=== PATIENT | male | born 1980 | race Caucasian/White ===

== ENCOUNTER 2017-03-02 09:59 | Emergency (ER) ==
[2017-03-02 10:10] VITALS: BP 134/81; TEMP 97.3; BMI 21.6
[2017-03-02] MEDS ORDERED: TORADOL IM STA (10:28)
[2017-03-02] MEDS ORDERED: NORFLEX IM STA (10:29)
--- NOTE | 2017-03-02 10:33 | ED.PDOC ---
General ED Provider: Dr. DOROTHEA BENJAMIN Chief Complaint: Back Pain Stated Complaint: back pain Time Seen by Physician: 10:00 Mode of Arrival: Walk-In Information Source: Patient Exam Limitations: No limitations Primary Care Provider: DIVYA FELDER Nursing and Triage Documentation Reviewed and Agree: Yes Musculoskeletal Complaint Exam - Back Pain Complaint/Exam Mechanism of Injury: Reports: No known trauma Onset/Duration: 3 hours after bending in shower Symptoms Are: Still present Timing: Constant Episodes Lasting: Hours Initial Severity: Moderate Current Severity: Moderate Location: Reports: Discrete Character: Reports: Aching Aggravating: Reports: Movements Alleviating: Reports: Position Associated Signs and Symptoms: Denies: Swelling, Redness, Bruising, Fever, Weakness, Numbness, Tingling, Abdominal pain, Flank pain, Bladder incontinence, Bowel incontinence, Weight loss, Pain with weight bearing TAD Risk Factors: Reports: None AAA Risk Factors: Reports: None Cauda Equina Risk Factors: Reports: None Epidural Abcess Risk Factors: Reports: None Related Surgical History: Reports: None Focal Tenderness: No Paraspinal Muscle Tenderness: Yes Paraspinal Muscle Spasm: No Scoliosis: No Lordosis: No Kyphosis: No SLR Test: Right Negative, Left Negative Hip Motion Testing Pain: Right Negative, Left Negative Focal Weakness: Present: None Focal Sensory Loss: Present: None Gait: Present: Normal Differential Diagnoses: Strain, Sprain Review of Systems - Review Of Systems Constitutional: Reports: No symptoms Eyes: Reports: No symptoms Ears, Nose, Mouth, Throat: Reports: No symptoms Respiratory: Reports: No symptoms Cardiac: Reports: No symptoms GI: Reports: No symptoms : Reports: No symptoms Musculoskeletal: Reports: Back pain Skin: Reports: No symptoms Neurological: Reports: No symptoms Endocrine: Reports: No symptoms Hematologic/Lymphatic: Reports: No symptoms All Other Systems: Reviewed and Negative Past Medical History - Past Medical History Previously Healthy: Yes Endocrine: Reports: None Cardiovascular: Reports: None Respiratory: Reports: None Hematological: Reports: None Gastrointestinal: Reports: None Genitourinary: Reports: None Neuro/Psych: Reports: None Musculoskeletal: Reports: None Cancer: Reports: None - Surgical History General Surgical History: Reports: None - Family History Family History: Reports: None - Social History Smoking Status: Former smoker Hx Substance Use: No Alcohol Screening: Occasionally - Immunizations Tetanus Shot up to Date: No Physical Exam - Physical Exam Appearance: Well-appearing, No pain distress, Well-nourished Eyes: WILFRED, EOMI, Conjunctiva clear ENT: Ears normal, Nose normal, Oropharynx normal Respiratory: Airway patent, Breath sounds clear, Breath sounds equal, Respirations nonlabored Cardiovascular: RRR, Pulses normal, No rub, No murmur GI/: Soft, Nontender, No masses, Bowel sounds normal, No Organomegaly Musculoskeletal: Normal strength, ROM intact, No edema, No calf tenderness Skin: Warm, Dry, Normal color Neurological: Sensation intact, Motor intact, Reflexes intact, Cranial nerves intact, Alert, Oriented Psychiatric: Affect appropriate, Mood appropriate Critical Care Note - Critical Care Note Total Time (mins): 0 Course - Course Orders, Labs, Meds: Orders Category Date Time Status Ketorolac Tromethamine [Toradol] MEDS 03/02/17 10:28 Discontinued 60 mg IM ONCE STA Orphenadrine Citrate [Norflex] MEDS 03/02/17 10:29 Discontinued 30 mg IM ONCE STA Medications Discontinued Medications Generic Name Dose Route Start Last Admin Trade Name Tessa PRN Reason Stop Dose Admin Ketorolac Tromethamine 60 mg 03/02/17 10:28 03/02/17 10:38 Toradol IM 03/02/17 10:29 60 mg ONCE STA Administration Orphenadrine Citrate 30 mg 03/02/17 10:29 03/02/17 10:36 Norflex IM 03/02/17 10:30 30 mg ONCE STA Administration Vital Signs: Temp Pulse Resp BP Pulse Ox 03/02/17 09:59 97.3 F L 75 18 134/81 97 Departure - Departure Time of Disposition: 10:32 Disposition: HOME SELF-CARE Discharge Problem: Backache Back pain Qualifiers: Back pain location: low back pain Chronicity: acute Back pain laterality: bilateral Sciatica presence: without sciatica Qualifier Code: (M54.5) Low back pain Instructions: Acute Low Back Pain (ED) Condition: Good Pt referred to PMD for follow-up: No Additional Instructions: Please call your Family Physician as soon as possible to schedule a follow-up appointment. NORCO 10/325 take 3 times a day for two days Allergies/Adverse Reactions: Allergies Sulfa (Sulfonamide Antibiotics) Allergy (Mild, Verified 03/02/17 10:12) Elevated BP, headache Home Medications: Ambulatory Orders Fluticasone Propionate [Flonase Allergy Relief] 9.9 ml NS PRN PRN 10/21/16 Cyclobenzaprine HCl [Flexeril] 10 mg PO DAILY PRN 03/02/17 Diclofenac Sodium 75 mg PO BID PRN 03/02/17
== END 2017-03-02 11:02 | disposition home or self-care (01) ==
LOC: ED 09:59
DX: M54.5 Low back pain (principal); X50.1XXA Overexertion from prolonged static or awkward postures, initial encounter
CPT/HCPCS: 96372; 99282

== ENCOUNTER 2017-03-11 09:06 | Outpatient (CLI) ==
[2017-03-11 13:12] LABS: FLU INTERNAL QC INTERNAL QC VALID; RAPID FLU A NEGATIVE (NEGATIVE); RAPID FLU B NEGATIVE (NEGATIVE)
== END 2017-03-11 09:07 | disposition home or self-care (01) ==
LOC: LAB 09:06
PROVIDERS: ATTEND Nurse Practitioner Family
DX: J02.9 Acute pharyngitis, unspecified (principal); R50.9 Fever, unspecified
CPT/HCPCS: 87651; 87804; 87880

== ENCOUNTER 2018-06-03 15:55 | Outpatient (CLI) ==
--- NOTE | 2018-06-04 09:08 | DI ---
Exam: Six views of the lumbar spine. Comparison: None available. Reason for exam: Low back pain. FINDINGS: No acute fracture or listhesis in the lumbar spine. There is intervertebral body disc spa ce height narrowing most notably at L5-S1. There is mild straightening of the lordotic curve. Impression: 1. No acute fracture in the lumbar spine. 2. Degenerative disease most notably L5-S1 with intervertebral body disc space height narrowing. If clinical concern exists, MRI may be performed for further characterization.
== END 2018-06-03 15:56 | disposition home or self-care (01) ==
LOC: RAD 15:55
PROVIDERS: ATTEND Family Medicine
DX: M54.5 Low back pain (principal)
CPT/HCPCS: 81001

== ENCOUNTER 2018-07-09 08:00 | Outpatient (RCR) ==
--- NOTE | 2018-06-15 16:14 | RS.OPPTEV2 ---
Date of Note: 06/15/18 Visit #: 1 Date of Evaluation: 06/15/18 Payer Source: Medicaid Treatment Diagnosis: Lumbar pain, Cervical paraspinal muscle spasm History of Condition/Mechanism of Injury:: Patient states he has had trouble with his back for a few years. He has backed off of lifting over the last one to one and a half years due to back pain. He has gone for Chiropractor treatments and has in inversion table that he uses consistently at home. Prior Level of Function.....Patient was independent with: ADL's, Self Care, Work /Vocation, Caregiving, Ambulation/Mobility, Community Integration/Access Functional Limitations: Standing, Bending Current Subjective/complaints:: Patient reports back pain with prolonged standing. Also reports pain first thing in the morning. States he has recently had more episodes of severe back pain. He has been active in weight lifting for years, including lifts. He has been limiting the amount of weight he lifts for over a year because of his back pain. He reports most pain is in the low back. LE symptoms are rare, but has experienced burning on the lateral side of the left foot and curling of the toes. Reports pain is almost always at least 2/10. States when pain is at it's worst, he cannot move or function. In the past, soaking in the tub has helped, but not recently. He has a muscle relaxant he takes before bed, which he reports has helped him sleep. Medical History Surgical History Comments:: Bilateral achilles tendon lengthening as a child Smoking Status: Former smoker Hx Home Medications: Ibuprofen, Prednisone (finished), Prilosec, Flexeril Patient's Goals: His goal is to get relief of back pain. Pain Assessment - Pain Description Pain Location: low back Current Pain Intensity: 3/10 Worst Pain Intensity: 8/10 Functional Outcome Measure Oswestry LBP: 46 - G Codes & Severity Modifier G Codes & Modifier: NA Source of G Code score: NA Observation - Observation Posture: Scapula Asymmetry (left scapula elevated), Decreased Lumbar Lordosis Handedness: Right Gait - Gait Pattern General Gait Pattern Observation: No Deviations/Normal - ROM Comments: To perform lumbar flexion, patient flexes both knees as he bends at the waist. Lumbar spine demonstrates limited mobility with flexion. Lumbar extension is WFL's. Bilateral lateral flexion is WFL's. Lower trunk rotation is WFL's with reports of rotation to his left feeling more limited. Bilateral LE AROM is WFL's. - Strength Trunk Lateral Flexion: 5 Normal Trunk Rotation: 5 Normal Comments: 5/5 throughout bilateral LE's. - Special Tests JOHAN Test: Negative Left, Negative Right SLR Test: Negative Left, Negative Right Seated Dural Stretch Test: Negative Left, Negative Right SI Joint Compression: Negative SI Joint Distraction: Negative Palpation Comments:: Demonstrates moderate muscle guarding along the lower thoracic and entire lumbar paraspinals. Reports no tenderness with Central PA's along the lumbar spinous processes. No tenderness with palpation over either SI joint. Sensation - Sensation Right Lower Extremity: Intact/Normal Left Lower Extremity: Intact/Normal Additional Comments: Additional Comments: SLR in supine: Right 45 degrees, left to 40 degrees. Interventions - Exercise/Activities/Manual Therapy Exercises/Activities: Patient instructed in HS, Piriformis, and lower trunk rotation stretches for HEP. Manual Therapy: NA HOME EXERCISE PROGRAM: HS, Piriformis, and lower trunk rotation stretches - Charges Timed Code Treatment Minutes: 0 Total Treatment Time: 40 mins Procedures billed for this date of service:: EVAL Low EVALUATION COMPLEXITY LEVEL EVALUATION COMPLEXITY LEVEL: HISTORY: Low, EXAM OF BODY SYSTEMS: Low, CLINICAL PRESENTATION: Low, CLINICAL DECISION MAKING: Low Assessment Assessment: Patient presents with diagnosis of lumbar pain and cervical paraspinal muscle spasm. He reports managing his neck pain with Chiropractor visits and inversion table. Patient's main focus is his back pain. He is active in weight lifting, but has had to limit himself over the past year due to back pain. He wakes with back pain each morning and reports increased pain with prolonged standing. He presents with tight hamstrings and moderately guarded lumbar paraspinals. He demonstrates good potential to benefit from stretching of tight muscles to relieve pressure on the lumbar spine. Patient Education: Education of diagnosis, Body/Joint mechanics, Home Exercise Program, Home Safety, Activity Modification, Education of Plan of Care Rehab Potential: Good Short Term Goals Goal #1: Patient independent and compliant in HEP. Goal to be met by: 06/29/18 Goal #2: Bilateral SLR to 50 degrees. Goal to be met by: 06/29/18 Goal #3: Muscle tone along lumbar paraspinals decreased to minimal. Goal to be met by: 06/29/18 Half-Way Goals Goal #1: Pt knows HEP and to continue ex's to maintain level of function at D/C. Goal to be met by: 07/15/18 Goal #2: Score on Oswestry LBP scale improved to 26. Goal to be met by: 07/15/18 Goal #3: Pt to tolerate prolonged standing with minimal LBP. Goal to be met by: 07/15/18 Goal #4: Pt to demo. good understanding of back safety and his diagnosis. Goal to be met by: 07/15/18 Plan - Treatment to be Provided Procedures: Therapeutic Exercises, Therapeutic Activity, Manual Therapy, Patient Education Modalities: Electrical Stimulation, Ultrasound/Phonophoresis, Cryotherapy, Hot Packs, Mechanical Traction (lumbar) - Treatment Plan Frequency: 3 X week Duration: 3 weeks ORDER # VISITS AND/OR THROUGH DATE: 07/15/18 - Treatment Code (1) Low back pain Code(s): M54.5 - LOW BACK PAIN Qualifiers: Chronicity: chronic Back pain laterality: unspecified Sciatica presence: unspecified whether sciatica present Qualified Code(s): M54.5 - Low back pain ; G89.29 - Other chronic pain
--- NOTE | 2018-07-03 09:16 | RS.OPPTDN ---
Subjective Date of Note: 07/03/18 Visit #: 2 Date of Evaluation: 06/15/18 Payer Source: Medicaid Treatment Diagnosis: Lumbar pain, Cervical paraspinal muscle spasm Current Subjective/complaints:: Patient reports the back pain varies ,dependent upon amount of standing throughout the day. Pain Assessment - Pain Description Pain Location: lumbar Pain Description: Tightness, Dull, Aching Current Pain Intensity: 2-3 - Heat/Cryotherapy Treatment: Hot Pack (20 mins. prior to exercises) Interventions - Exercise/Activities/Manual Therapy Exercises/Activities: 40 mins. total of pelvic tilts,SKTC,DKTC,90/90 hamstring stretches,contract-relax instructionms for hamstrings,body mechanics. Total minutes of Exercise: 40 Manual Therapy: NA HOME EXERCISE PROGRAM: HS, Piriformis, and lower trunk rotation stretches - Charges Timed Code Treatment Minutes: 40 Total Treatment Time: 60 Procedures billed for this date of service:: hp,ex 3 Assessment: Patient has very good knowledge of HEP,good return demo.We discussed to hold the stretches longer if pain is not elicited.He has moderate hamstring tightness bilaterally .This does improve after contract-relax method of stretches.He also has slight R sided increase in LBP with L SKTC.He is vry attentive and motivated to improve. Patient Education: Education of diagnosis, Body/Joint mechanics, Home Exercise Program, Home Safety, Activity Modification, Education of Plan of Care Patient demonstrates compliance with HEP?: Yes Short Term Goals Goal #1: Patient independent and compliant in HEP. Goal to be met by: 06/29/18 Progress towards Goal:: Progressing Goal #2: Bilateral SLR to 50 degrees. Goal to be met by: 06/29/18 Goal #3: Muscle tone along lumbar paraspinals decreased to minimal. Goal to be met by: 06/29/18 Penitentiary Goals Goal #1: Pt knows HEP and to continue ex's to maintain level of function at D/C. Goal to be met by: 07/15/18 Progress towards goal: Progressing Goal #2: Score on Oswestry LBP scale improved to 26. Goal to be met by: 07/15/18 Goal #3: Pt to tolerate prolonged standing with minimal LBP. Goal to be met by: 07/15/18 Goal #4: Pt to demo. good understanding of back safety and his diagnosis. Goal to be met by: 07/15/18 Progress towards goal: Progressing Plan PLAN OF CARE EXPIRES ON:: 07/15/18 ORDER # VISITS AND/OR THROUGH DATE: 07/15/18 PLAN: Continue PT to eliminate back pain ,increase awareness of posture and body mechanics.
--- NOTE | 2018-07-07 09:34 | RS.OPPTDN ---
Subjective Date of Note: 07/07/18 Visit #: 3 Date of Evaluation: 06/15/18 Payer Source: Medicaid Treatment Diagnosis: Lumbar pain, Cervical paraspinal muscle spasm Current Subjective/complaints:: Reports muscle sorenes ,but no increased back pain today.He is compliant to HEP,is also working on stretching his hamstrings. Pain Assessment - Pain Description Pain Location: low back Pain Description: Dull Pain Description: muscular soreness Current Pain Intensity: not rated - Heat/Cryotherapy Treatment: Hot Pack (20 mins. prior to exercises) Interventions - Exercise/Activities/Manual Therapy Exercises/Activities: 40 mins. total of pelvic tilts,SKTC,DKTC,90/90 hamstring stretches,contract-relax instructions for hamstrings,LTR ,piriformis stretches..Added muscle energy techniques for SI joint of resisted hip flexion , and resisted knee extension in hooklying. Total minutes of Exercise: 40 Manual Therapy: NA HOME EXERCISE PROGRAM: HS, Piriformis, and lower trunk rotation stretches - Charges Timed Code Treatment Minutes: 40 Total Treatment Time: 60 Procedures billed for this date of service:: hp,ex 3 Assessment: Patient instructed to increase the focus on stretching the hamstrings.He is active and has good muscle tone ,but the extensibility can improve and decrease the risk of low back injury.The other exercises are done properly,except verbal cues to hold the stretch longer ,and also for breathing technique. Patient Education: Education of diagnosis, Body/Joint mechanics, Home Exercise Program, Home Safety, Activity Modification, Education of Plan of Care Patient demonstrates compliance with HEP?: Yes Short Term Goals Goal #1: Patient independent and compliant in HEP. Goal to be met by: 06/29/18 Progress towards Goal:: Progressing Goal #2: Bilateral SLR to 50 degrees. Goal to be met by: 06/29/18 Progress towards Goal:: Progressing Goal #3: Muscle tone along lumbar paraspinals decreased to minimal. Goal to be met by: 06/29/18 Mural Painter Goals Goal #1: Pt knows HEP and to continue ex's to maintain level of function at D/C. Goal to be met by: 07/15/18 Progress towards goal: Progressing Goal #2: Score on Oswestry LBP scale improved to 26. Goal to be met by: 07/15/18 Goal #3: Pt to tolerate prolonged standing with minimal LBP. Goal to be met by: 07/15/18 Progress towards goal: Progressing Goal #4: Pt to demo. good understanding of back safety and his diagnosis. Goal to be met by: 07/15/18 Progress towards goal: Progressing Plan PLAN OF CARE EXPIRES ON:: 07/15/18 ORDER # VISITS AND/OR THROUGH DATE: 07/15/18 PLAN: Continue PT to decrease LBP by utilizing proper stretches,especially of hamstrings,educate patient also on postural awareness.
--- NOTE | 2018-07-08 09:20 | RS.OPPTDN ---
Subjective Date of Note: 07/08/18 Visit #: 4 Date of Evaluation: 06/15/18 Payer Source: Medicaid Treatment Diagnosis: Lumbar pain, Cervical paraspinal muscle spasm Current Subjective/complaints:: Patient reports the back feels about like yesterday ,department director stiffness and achng,but no sgharp pain . Pain Assessment - Pain Description Pain Location: lumbar Pain Description: Dull Current Pain Intensity: 1/10 - Heat/Cryotherapy Treatment: Hot Pack (20 mins. to lumbar and bilateral hamstrings before stretches) Interventions - Exercise/Activities/Manual Therapy Exercises/Activities: 35 mins. total of pelvic tilts,90/90 hamstring stretches, contract-relax instructions for hamstrings.Multiple reps. of contract-relax with the LE elevated at different angles.Passive knee extension to approximately -10 degrees when hip flexed to 90 in supine. Total minutes of Exercise: 35 Manual Therapy: NA Total minutes of Manual Therapy: 0 HOME EXERCISE PROGRAM: HS, Piriformis, and lower trunk rotation stretches - Charges Timed Code Treatment Minutes: 35 Total Treatment Time: 55 Procedures billed for this date of service:: hp,ex 2 Assessment: Patient progressing ,has significant improvement in the hamstring extensibility after multiple reps. of aggressive stretching.Patient education regarding the importance of stretches ,as he is very active ,weight-lifts in gym.The stretches today did not elicit any pain,has negative SLR tests on each LE today. Patient Education: Education of diagnosis, Body/Joint mechanics, Home Exercise Program, Home Safety, Activity Modification, Education of Plan of Care Patient demonstrates compliance with HEP?: Yes Short Term Goals Goal #1: Patient independent and compliant in HEP. Goal to be met by: 06/29/18 Progress towards Goal:: Met Goal #2: Bilateral SLR to 50 degrees. Goal to be met by: 06/29/18 Progress towards Goal:: Met Goal #3: Muscle tone along lumbar paraspinals decreased to minimal. Goal to be met by: 06/29/18 Progress towards Goal:: Progressing [facility] Goals Goal #1: Pt knows HEP and to continue ex's to maintain level of function at D/C. Goal to be met by: 07/15/18 Progress towards goal: Met Goal #2: Score on Oswestry LBP scale improved to 26. Goal to be met by: 07/15/18 Goal #3: Pt to tolerate prolonged standing with minimal LBP. Goal to be met by: 07/15/18 Progress towards goal: Progressing Goal #4: Pt to demo. good understanding of back safety and his diagnosis. Goal to be met by: 07/15/18 Progress towards goal: Progressing Plan PLAN OF CARE EXPIRES ON:: 07/15/18 ORDER # VISITS AND/OR THROUGH DATE: 07/15/18 PLAN: Continue PT to eliminate back pain ,increase the hamstring extensibility to reduce the risk of back injury.
--- NOTE | 2018-07-09 09:18 | RS.QUICKDC ---
Discharge from PT Date of Discharge: 07/09/18 Number of Visits: 5 Reason for Discharge: Patient has progressed well,has excellent understanding of body mechanics.His back pain is minimal with activity,not present at rest.Today's session includes hot pack,exercise for 25 mins.He has good return demo of pelvic tilts,SKTC,DKTC,LTR,SI muscle energy,and piriformis stretches.He is aware of and agrees with D/C plan today.
== END 2018-07-10 23:59 ==
PROVIDERS: ATTEND Family Medicine
DX: M54.5 Low back pain (principal); G89.29 Other chronic pain; M62.838 Other muscle spasm

== ENCOUNTER 2019-04-26 08:18 | Emergency (ER) ==
[2019-04-26 08:30] VITALS: BP 108/72; TEMP 100.5; BMI 21.9
--- NOTE | 2019-04-26 10:16 | ED.PDOC ---
General ED Provider: Dr. DOROTHEA BENJAMIN Chief Complaint: Fever Stated Complaint: fever tick bite Time Seen by Physician: 08:19 (see the photos) Mode of Arrival: Walk-In Information Source: Patient Exam Limitations: No limitations Primary Care Provider: AMISH PATRICIA Nursing and Triage Documentation Reviewed and Agree: Yes Does patient meet sepsis criteria?: No System Inflammatory Response Syndrome: Not Applicable Sepsis Protocol: For patient's 13 years and over: Temp is 96.8 and below OR 101 and greater Pulse >90 BPM Resp >20/minute Acutely Altered Mental Status Are patient's symptoms suggestive of a new infection, such as: -Pneumonia -Skin, Soft Tissue -Endocarditis -UTI -Bone, Joint Infection -Implantable Device -Acute Abdominal Infection -Wound Infection -Meningitis -Blood Stream Catheter Infection -Unknown Trauma/Injury Complaint Exam - Bite Injury Complaint/Exam Location of Bite: posterior right thigh, top of right foot, right axilla Bite Occured: 3 days ago Symptoms Are: Still present (rash not target-like) Type of Bite: Reports: Other (tick) Animal Immunized: Reports: N/A Initial Severity: Mild Current Severity: Mild Character: Reports: Puncture Aggravating: Reports: None Alleviating: Reports: None Associated Signs and Symptoms: Reports: Fever. Denies: Erythema, Drainage, Swelling, Lymphadenopathy, Numbness, Tingling, Limited ROM Related History: Reports: Unprovoked Animal Available for Observation: No Animal Control Notified: No Infection/Sepsis Risk Factors: Present: None Bite Findings: Present: Erythema (2 mm puncture wound; no ticks identified or buried; neckline explored no ticks noted). Absent: Swelling, Fluctuance, Induration, Abscess, Tenderness, Ecchymosis, Hematoma, Joint erythema, Joint swelling, Foreign body Wound Description: Present: Abrasion, Puncture wound Drainage: Present: None Differential Diagnoses: Other (tick bite) Review of Systems - Review Of Systems Constitutional: Reports: No symptoms Eyes: Reports: No symptoms Ears, Nose, Mouth, Throat: Reports: No symptoms Respiratory: Reports: No symptoms Cardiac: Reports: No symptoms GI: Reports: No symptoms : Reports: No symptoms Musculoskeletal: Reports: No symptoms Skin: Reports: Rash Neurological: Reports: No symptoms Endocrine: Reports: No symptoms Hematologic/Lymphatic: Reports: No symptoms All Other Systems: Reviewed and Negative Past Medical History - Past Medical History Previously Healthy: Yes Endocrine: Reports: None Cardiovascular: Reports: None Respiratory: Reports: None Hematological: Reports: None Gastrointestinal: Reports: None Genitourinary: Reports: None Neuro/Psych: Reports: None Musculoskeletal: Reports: None Cancer: Reports: None - Surgical History General Surgical History: Reports: None - Family History Family History: Reports: None - Social History Smoking Status: Former smoker Hx Substance Use: No Alcohol Screening: Occasionally - Immunizations Tetanus Shot up to Date: No Physical Exam - Physical Exam Appearance: Well-appearing, No pain distress, Well-nourished Eyes: WILFRED, EOMI, Conjunctiva clear ENT: Ears normal, Nose normal, Oropharynx normal Respiratory: Airway patent, Breath sounds clear, Breath sounds equal, Respirations nonlabored Cardiovascular: RRR, Pulses normal, No rub, No murmur GI/: Soft, Nontender, No masses, Bowel sounds normal, No Organomegaly Musculoskeletal: Normal strength, ROM intact, No edema, No calf tenderness Skin: Warm, Dry (2 mm puncture wound noted per photos ) Neurological: Sensation intact, Motor intact, Reflexes intact, Cranial nerves intact, Alert, Oriented Psychiatric: Affect appropriate, Mood appropriate Critical Care Note - Critical Care Note Total Time (mins): 0 Course - Course Hematology/Chemistry: 04/26/19 09:19 04/26/19 09:33 Orders, Labs, Meds: Lab Review 04/26/19 04/26/19 04/26/19 09:19 09:33 09:33 WBC 11.87 H RBC 5.51 Hgb 16.3 Hct 46.7 MCV 84.8 MCH 29.6 MCHC 34.9 RDW Coeff of Jayne 11.7 Plt Count 159 Immature Gran % (Auto) 0.3 Neut % (Auto) 79.9 Lymph % (Auto) 10.4 [place] % (Auto) 7.2 Eos % (Auto) 1.9 Baso % (Auto) 0.3 Immature Gran # (Auto) 0.0 Neut # (Auto) 9.5 H Lymph # (Auto) 1.2 [place] # (Auto) 0.9 Eos # (Auto) 0.2 Baso # (Auto) 0.0 Sodium 139.3 Potassium 4.43 Chloride 101.8 Carbon Dioxide 29.7 Anion Gap 12.23 BUN 15.4 Creatinine 1.26 H Estimated GFR (MDRD) 64.00 BUN/Creatinine Ratio 12.22 Glucose 95.4 Calcium 8.95 Total Bilirubin 1.25 AST 18.4 ALT 16.3 Alkaline Phosphatase 56.0 Total Protein 7.26 Albumin 4.34 Globulin 2.92 Albumin/Globulin Ratio 1.48 Influ A Molecular Assay Negative by naat Influ B Molecular Assay Negative by naat Orders Category Date Time Status CBC W/ AUTO DIFF Stat LAB 04/26/19 09:19 Completed COMPREHENSIVE METABOLIC PANEL Stat LAB 04/26/19 09:33 Completed EHRLICHIA DNA, PCR Stat LAB 04/26/19 09:33 Received FLU A & B MOLECULAR [FLU A/B MOLECULAR] Stat LAB 04/26/19 09:33 Completed LYME, WESTERN BLOT, SERUM Stat LAB 04/26/19 09:33 Received RAPID STREP SCREEN [MOLECULAR GROUP A STREP] Stat LAB 04/26/19 09:33 Completed ANGY MTN SPOTTED FEVER,IgG Routine LAB 04/26/19 Ordered ANGY MTN SPOTTED FEVER,IgM Routine LAB 04/26/19 09:33 Received CHEST, 2 VIEWS PA & LAT Stat RADS 04/26/19 09:19 Ordered Vital Signs: Temp Pulse Resp BP Pulse Ox 04/26/19 08:19 100.5 F H 102 H 18 108/72 94 L Departure - Departure Time of Disposition: 10:19 Disposition: HOME SELF-CARE Discharge Problem: Fever Qualifiers: Fever type: unspecified Qualified Code(s): R50.9 - Fever, unspecified Tick bite Qualifiers: Encounter type: initial encounter Qualified Code(s): W57.XXXA - Bitten or stung by nonvenomous insect and other nonvenomous arthropods, initial encounter Instructions: Lyme Disease (ED), Insect Bite or Sting (ED), Tick Bite (ED), [place] Spotted Fever (ED) Condition: Good Pt referred to PMD for follow-up: Yes IPMP verified?: No Additional Instructions: Please call your Family Physician as soon as possible to schedule a follow-up appointment. Per our conversation, the baseline serum titer for specific tick- borne illnesses has been drawn. At this time, I will not start you on an antibiotic. Please obtain the results of the test from your doctor. Repeat test may have to be done to see if serum levels rise. If so, immediate antibiotics have to be initiated. Meanwhile, please take Tylenol as needed, hydrate, and rest. Return as needed. Allergies/Adverse Reactions: Allergies gabapentin Adverse Reaction (Mild, Verified 04/26/19 08:46) Skin tingling. Sulfa (Sulfonamide Antibiotics) Adverse Reaction (Mild, Verified 04/26/19 08:46) Elevated BP, headache Home Medications: Ambulatory Orders Tizanidine HCl [Zanaflex] 4 mg PO DAILY 04/26/19
--- NOTE | 2019-04-26 10:19 | DI ---
Examination: Chest two views Clinical history: Cough There is hyperinflation of the lungs. There is a probable azygos lobe (then just to the right of mid line within the superior chest. There is narrowing of the cardio mediastinal silhouette. No coalesc ent infiltrate or effusion. Diaphragms are mildly flattened. Impression: 1. No pneumonia. 2. Hyperinflation indicating some degree of obstructive/restrictive pulmonary disease.
== END 2019-04-26 10:58 | disposition home or self-care (01) ==
LOC: ED 08:18
DX: R50.9 Fever, unspecified (principal); R21 Rash and other nonspecific skin eruption; S70.361A Insect bite (nonvenomous), right thigh, initial encounter; S90.861A Insect bite (nonvenomous), right foot, initial encounter; S40.861A Insect bite (nonvenomous) of right upper arm, initial encounter; W57.XXXA Bitten or stung by nonvenomous insect and other nonvenomous arthropods, initial encounter
CPT/HCPCS: 36415; 80053; 85025; 86617; 86757; 87502; 87651; 87798; 99283

== ENCOUNTER 2019-04-27 13:42 | Outpatient (CLI) ==
[2019-04-26 08:30] VITALS: BMI 21.9
== END 2019-04-27 13:43 | disposition home or self-care (01) ==
LOC: RHC-LAB 13:42 → FCC-LAB 13:43
PROVIDERS: ATTEND Family Medicine
DX: R10.13 Epigastric pain (principal)
CPT/HCPCS: 87338